=== PATIENT | female | born 1955 | race Caucasian/White ===

== ENCOUNTER → 2017-07-13 | Outpatient (CLI) | payer MEDICARE ==
[~2017-07-13] MED LIST: ABILIFY 10MG TA10 MG PO; CRESTOR20 MG PO; DITROPAN 5MG TAB5 MG PO; IBU800 M1 PO; LAMICTAL200 MG PO; LEVOXYL0.05 MG PO; LEXAPRO 10MG10 MG PO; MULTIVITAMIN FO1 CAP PO; NORCO 325 MG-101 TAB PO; NORCO 325 MG-51 TAB PO; NORCO 325 MG-7.1 TAB PO; REQUIP0.25 MG PO; RT ADVAIR 128 DISKUS IH; RT SPIRIVA18 MCG IH; SINGULAIR 110 MG/TAB PO; TYLENOL 325MG325 MG PO
== END ==
LOC: COL.RAD 07:23
DX: M48.07 Spinal stenosis, lumbosacral region (principal); M46.86 Other specified inflammatory spondylopathies, lumbar region; M43.16 Spondylolisthesis, lumbar region; M47.816 Spondylosis without myelopathy or radiculopathy, lumbar region; M51.26 Other intervertebral disc displacement, lumbar region